=== PATIENT | female | born 1945 | race Caucasian/White ===

== ENCOUNTER 2022-05-21 13:53 | Outpatient (CLI) | payer MEDICARE, BC, SELFPAY ==
--- NOTE | 2022-05-21 14:00 | CRLHL7_ITS ---
For Patients: As a result of the Century Cures Act, medical imaging exams and procedure reports are released immediately into your electronic medical record. You may view this report before your referring provider. If you have questions, please contact your health care provider. BILATERAL MAMMOGRAM WITH COMPUTER-AIDED DETECTION AND TOMOSYNTHESIS TECHNIQUE: CC and MLO views were obtained. These mammographic images have been obtained using full-field digital technique. These mammographic images were interpreted with the benefit of computer-aided detection. Breast Tomosynthesis was used in this interpretation. COMPARISON FILM: 10/10/2018, 11/29/2016, 10/06/2014. FINDINGS: There are scattered areas of fibroglandular density IMPRESSION: There is no radiographic evidence for malignancy. ASSESSMENT: BI-RADS Category 1: Negative RECOMMENDATION: Routine screening mammogram in 1 year. A lay language report of this examination will be provided to the patient. Bill Mcqueen M.D. Diagnostic Radiologist [email or web address] LUCIAN/deion albarran/Dictated by: Bill Mcqueen MD @ 05/22/2022 12:14:00 PM (Electronically Signed)
== END 2022-05-21 13:54 | disposition home or self-care (01) ==
PROVIDERS: PCP Internal Medicine; Visit Provider Internal Medicine
DX: Z12.31 Encounter for screening mammogram for malignant neoplasm of breast (principal)
CPT/HCPCS: 77063; 77067

== ENCOUNTER 2022-12-25 09:49 | Outpatient (CLI) | payer MEDICARE, BC, SELFPAY ==
[2022-12-25 13:57] LABS: Cholesterol* 236 mg/dL (90-199); Triglycerides* 164 mg/dL (40-149)
[2022-12-25 14:06] LABS: Vitamin D 25 Hydroxy* 28 ng/mL (30-80)
[2022-12-25 14:18] LABS: HDL Cholesterol* 148 mg/dL (>=50); LDL Cholesterol Calculated 55 mg/dL (<100)
== END 2022-12-25 09:50 | disposition home or self-care (01) ==
PROVIDERS: PCP Internal Medicine; Visit Provider Internal Medicine
DX: E78.5 Hyperlipidemia, unspecified (principal); M85.80 Other specified disorders of bone density and structure, unspecified site
CPT/HCPCS: 80061; 82306

== ENCOUNTER 2023-07-11 14:15 | Outpatient (CLI) | payer MEDICARE, BC, SELFPAY ==
--- OUTSIDE RECORDS SUMMARY | 2023-07-11 14:20 | XMS_ITS | Continuity of Care Document ---
Author Name Unknown Organization [facility] Address [address] [place] [address] Phone Care Team Providers Care System Administrator Name Role Phone Pavel Page MD Unavailable Unavailab le Allergies, Adverse Reactions, Alerts Substance Reaction Status Criticality Sulfa (Sulfonamide Antibiotics) Rash Active No Information PENICILLIN Rash Active No Information Medications Medication Instructions Dosage Effective Dates (start - stop) Status Comments ALEVE (unknown strength) Not Available - Active NAPROXEN (unknown strength) Not Available - Active PREDNISONE (unknown strength) Not Available - Active ALENDRONATE SODIUM (unknown strength) Not Available - Active ATORVASTATIN CALCIUM (unknown strength) Not Available - Active GABAPENTIN (unknown strength) Not Available - Active OMEPRAZOLE (unknown strength) Not Available - Active Procedures Procedure Date Office/Outpatient Visit,[facility], [facility] [place] X Ray Exam Entire Spine 2/3 VW 19 Advance Directives Directive Yes / No Effective Date File Name No Information Encounters Encounter Description Practice Location Reason(s) For Visit Diagnoses Date Provider Providers Copied on Encounter [facility], [address], [place], [id number], [place] tel:[phone] [facility] [place] No Information Camilo cormier. [facility], [address], [address], [facility] [place] [place], [id number] , [place]. tel:[phone] Office/Outpat ient Visit,[facility], [facility] [place] [facility], [address], [place], [id number], [place] tel:[phone] [facility] [place] Other intervertebral disc displacement, lumbar region Camilo winn [facility], [address], [address], [place], [place], [id number] , [place]. [phone] Referring Provider: Jonathan Unger, [facility] [address], [place], [address] . tel:[phone] Family History Family Member Type Diagnosis Age At Onset No Information Payers Payer name Insurance type Covered green party ID Authoriza tion(s) Medicare MB [id number] [facility] [id number] [facility] [id number] Social History Type Description Quantity Date Captured Comments Sex Female Smoking Status No Information Chief Complaint And Reason For Visit No Information Reason For Referral Reason For Referral No Information Plan Of Treatment Date Type Action Status Future Order: Radiology Order PA /Lateral Full Spine (PALatFS), Ordered on: Ordered History Of Present Illness Encounter Date Complaint History Of Prese nt Illness No Information Functional Status Date Functional Assessmen t No Information Instructions Date Instruction Additional Infor mation No Information Assessments Type Assessment Date No Information Patient Care Teams Name Effective Dates (start - stop) Status Members No Information
== END 2023-07-11 14:16 | disposition home or self-care (01) ==
LOC: NFLDREF 14:16
PROVIDERS: PCP Internal Medicine; Visit Provider Internal Medicine
DX: I47.1 Supraventricular tachycardia (principal); I11.9 Hypertensive heart disease without heart failure
CPT/HCPCS: 84443

== ENCOUNTER 2023-10-31 13:46 | Outpatient (CLI) | payer MEDICARE, BC, SELFPAY ==
--- OUTSIDE RECORDS SUMMARY | 2023-10-31 13:50 | XMS_ITS | Continuity of Care Document ---
Author Name Unknown Organization [facility] Address [address] [place] [address] Phone Care Team Providers Care Knitter Mechanic Name Role Phone Pavel Page MD Unavailable [...] Available - Active Procedures Procedure Date Office/Outpatient Visit,[facility] [facility] [place] Exam Entire Spine 2/3 VW 19 Advance Directives Directive Yes / No Effective Date File Name No Information Encounters Encounter Description Practice Location Reason(s) For Visit Diagnoses Date Provider Providers Copied on Encounter [facility], [address], [place], [id number], [place] tel:[phone] [facility] No Information Camilo cormier. [facility], [address], [address], [facility] [place], [id number] , [place]. tel:[phone] Office/Outpat ient Visit,[facility], [facility] [place] [facility], [address], [place], [id number], [place] tel:[phone] [facility] [place] Other intervertebral disc displacement, lumbar region Camilo winn [facility], [address], [address], [place], [place], [id number] , [place]. [phone] Referring Provider: Jonathan Unger, [facility] [address], [place], [address] . tel:[phone] Family History Family Member Type Diagnosis Age At Onset No Information Payers Payer name Insurance type Covered libertarian ID Authoriza tion(s) Medicare MB [id number] [facility] [id number] [facility] [id number] Social History Type Description Quantity Date Captured [...]
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
== END 2023-10-31 13:47 | disposition home or self-care (01) ==
LOC: RAD 13:47
PROVIDERS: PCP Internal Medicine; Visit Provider Internal Medicine
DX: M85.88 Other specified disorders of bone density and structure, other site (principal)
CPT/HCPCS: 77080

== ENCOUNTER 2025-04-22 09:07 | Outpatient (CLI) | payer MEDICARE, BC, SELFPAY | END 2025-04-22 09:08 | disposition home or self-care (01) | LOC: NFLDREF 04-26 15:19 | PROVIDERS: PCP Internal Medicine; Referring Provider Internal Medicine; Visit Provider Internal Medicine | DX: E78.5 Hyperlipidemia, unspecified (principal); M85.80 Other specified disorders of bone density and structure, unspecified site; I47.10 Supraventricular tachycardia, unspecified | CPT/HCPCS: 80061; 82306 ==

== ENCOUNTER 2025-06-23 06:13 | Day surgery (SDC) | payer MEDICARE, BC, SELFPAY ==
[2025-06-23] VITALS (9 sets, daily range): BP systolic 144–177; BP diastolic 77–87; PULSE 63–77; RESP 16; TEMP 36.1–36.8; O2SAT 95–98
[2025-06-23] MEDS: ETHYL CHLORIDE 1 APPLICATION 1 APPLIC TOPICAL (06:50)
[2025-06-23] MEDS: BUPIVACAINE 0.5% 30 ML INJECTION (06:50)
[2025-06-23] MEDS: LIDOCAINE 1%-EPI 1:100,000 20 ML INFILTRATI (06:50)
--- NOTE | 2025-06-23 09:07 | SUR.OPER ---
PATIENT QUESTIONS ANSWERED SATISFACTORILY PREOPERATIVELY. PATIENT BROUGHT TO OR #3 PER WHEELCHAIR. Patient positioned supine on OR #3 bed. The perioperative team supported arms bilaterally on arm boards. Final approval of positioning by surgeon.
--- NOTE | 2025-06-23 10:10 | P.ORPRC_ITS ---
Procedure Note Date of procedure: 06/23/25 Procedure: PREOPERATIVE DIAGNOSIS: 1. Left carpal tunnel syndrome POSTOPERATIVE DIAGNOSIS: 1. Left carpal tunnel syndrome PROCEDURE: 1. Left open carpal tunnel release SURGEON: Mohsen Peña MD. GOLD AND SILVER ASSAYER: Cinthya Akers PA-C ANESTHESIA: Local anesthetic (50:50 mixture of 1% lidocaine with epi and 0.5% marcaine plain) - 10ml total IMPLANTS: None EBL: 2 mL TOURNIQUET: None COMPLICATIONS: None evident INDICATIONS: The patient is a pleasant 79-year-old female who has experienced left hand numbess/tingling affecting the radial 3.5 digits for multiple months. It has progressively gotten worse. Nonoperative management has been tried and failed, and therefore surgery was recommended. DESCRIPTION OF PROCEDURE: Following a thorough discussion of risks, benefits, and alternatives consent was obtained and the operative extremity was marked. The patient was brought to the operating room and placed supine on the operating table. Local anesthesia induction was undertaken in preop holding. No antibi otics were administered as this was planned to be a local case only. Proper time-out was performed identifying proper patient, site, and procedure. The operative extremity was prepped and draped in the appropriate sterile fashion using ChloraPrep. An incision was made in line with the radial border of the ring finger beginning 1 cm distal to the distal wrist crease and progressing for another 2.5cm distal. Caution was taken to stay proximal to Ballard's cardinal line. Sharp incision through the skin, subcutaneous tissue, and palmar fascia was performed. The thenar musculature was bluntly elevated off the transverse carpal ligament. The ligament was directly visualized, and divided sharply with a 15 blade. This was released from its most proximal to the most distal extent. Metzenbaum scissor was also utilized to release the fascia extension proximally. We confirmed complete release of the transverse carpal ligament. Closure was performed with 4-O nylon in interrupted fashion. Soft dressings were applied, and the patient was transferred to the recovery room in stable condition. PLAN: 1. Encourage elevation of the operative extremity. 2. Range of motion of the fingers and hand/wrist as tolerated. 3. Ibuprofen/acetaminophen as needed for pain control. 4. Follow up with PA visit or nurse visit in 12-16 days for wound check and suture removal.
== END 2025-06-23 07:56 | disposition home or self-care (01) ==
LOC: OR 06:13
PROVIDERS: PCP Internal Medicine; Visit Provider Orthopaedic Surgery Sports Medicine
PROC: (CPT 64721; principal; 2025-06-23 07:15)
DX: G56.02 Carpal tunnel syndrome, left upper limb (principal)
CPT/HCPCS: 64721; J0665